=== PATIENT | female | born 1965 | race African-American/Black ===

== ENCOUNTER 2018-09-17 14:03 | Emergency (ER) | payer OTHER ==
[~2018-09-17] VITALS: Ht 172.7 cm; Wt 72.6 kg
--- NOTE | ~2018-09-17 | EKG ---
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
[~2018-09-17 14:03] MED LIST: BACTRIM; DOXYCYCLINE 10100 M1 PO; DOXYCYCLINE 10100 MG PO; KEFLEX500 M1 PO; MOTRIN 600 MG600 M1 OR; NOHOMEMEDICATIONS; NORCO 5-325 TA1 EACH PO
[2018-09-17 14:51] LABS: URINE BILIRUBIN NEGATIVE (Negative); URINE BLOOD 1+ (Negative); URINE CLARITY CLEAR; URINE COLOR YELLOW; URINE GLUCOSE-RANDOM* NEGATIVE (Negative); URINE KETONES NEGATIVE (Negative); URINE LEUKOCYTES-REFLEX NEGATIVE (Negative); URINE NITRITE-REFLEX NEGATIVE (Negative); URINE PROTEIN (DIPSTICK) NEGATIVE (Negative); URINE UROBILINOGEN 0.2 E.U./dl (0.2-1.0)
[2018-09-17 14:59] LABS: CASTS None Seen /LPF (None Seen); CRYSTALS None Seen /LPF (None Seen); MUCUS >6 Heavy strn/LPF (None Seen); SQUAMOUS 0-3 Few /LPF (0-3); URINE RBC 3-10 Few /HPF (0-2); URINE WBC-REFLEX None Seen /HPF (0-5)
[2018-09-17 15:00] LABS: BACTERIA-REFLEX None Seen /HPF (None Seen)
[2018-09-17 16:55] LABS: ABSOLUTE NEUTROPHILS 3.6 thou/uL (1.4-8.2); BASOPHILS 0.2 % (0.0-2.0); EOSINOPHILS 1.5 % (0.0-3.0); HEMATOCRIT 37.8 % (37.0-47.0); HEMOGLOBIN 12.4 gm/dL (12.0-15.0); LYMPHOCYTES 31.2 % (24.0-44.0); MCH 23.7 pg (26.0-34.0); MCHC 32.8 g/dL (28.0-37.0); MCV 72.3 fL (80.0-100.0); MONOCYTES 8.2 % (1.0-8.0); PLATELET COUNT 258 thou/uL (150-400); POLYS 58.9 % (36.0-66.0); RBC 5.23 mil/uL (4.20-5.00); RDW 14.1 % (10.5-14.5); WBC 6.2 thou/uL (4.0-11.0)
[2018-09-17 17:04] LABS: ANION GAP 10 mmol/L (7-16); BUN 5 mg/dL (7-18); CALCIUM 9.1 mg/dL (8.5-10.1); CHLORIDE 104 mmol/L (98-107); CO2 26 mmol/L (21-32); CREATININE 0.8 mg/dL (0.6-1.0); GLUCOSE 89 mg/dL (74-106); SODIUM 140 mmol/L (136-145)
[2018-09-17 17:13] LABS: ALBUMIN 3.7 g/dL (3.4-5.0); LIPASE 58 U/L (73-393); SGOT 16 U/L (15-37); SGPT 19 U/L (30-65); TOTAL BILIRUBIN 0.4 mg/dL (<0.1-1.0); TOTAL PROTEIN 7.6 g/dL (6.4-8.2); TROPONIN-I <0.06 ng/mL (<0.06)
[2018-09-17] MEDS ORDERED: ONDANSETRON HCL4 M2 PO (18:56)
[2018-09-17] MEDS ORDERED: BUTALB-APAP-CA1 EACH PO (18:56)
[2018-09-17 19:01] VITALS: BP 166/86
== END 2018-09-17 19:15 | disposition home or self-care (01) ==
LOC: ER 14:03
PROVIDERS: Emergency Medicine
DX: B34.9 Viral infection, unspecified (principal); E87.6 Hypokalemia; R11.2 Nausea with vomiting, unspecified; R19.7 Diarrhea, unspecified; H92.03 Otalgia, bilateral; F17.210 Nicotine dependence, cigarettes, uncomplicated; Z88.2 Allergy status to sulfonamides; Z90.11 Acquired absence of right breast and nipple; Z90.710 Acquired absence of both cervix and uterus; Z86.2 Personal history of diseases of the blood and blood-forming organs and certain disorders involving the immune mechanism